=== PATIENT | female | born 1955 | race Caucasian/White ===

== ENCOUNTER → 2024-05-31 14:48 | Outpatient (REF) | payer MEDICARE, OTHER, SELFPAY ==
[2024-05-31 15:33] LABS: % Basophils 0.5 % (0-2); % Eosinophils 1.5 % (0-6); % Immature Granulocytes 0.5 % (0-0.5); % Lymphocytes 29.9 % (20.5-51.1); % Monocytes 7.6 % (1.7-9.3); Absolute Eosinophils 0.1 10^3/uL (0-0.7); Absolute Lymphocytes 2.3 10^3/uL (1.2-3.4); Absolute Monocytes 0.6 10^3/uL (0.1-0.6); Absolute Neutrophils 4.7 10^3/uL (1.4-6.5); Hematocrit 35.7 % (37.0-47.0); Hemoglobin 12.2 g/dL (12.0-16.0); Mean Corp Hgb Conc. 34.2 g/dL (33.0-37.0); Mean Corpuscular Hgb 32.2 pg (27.0-31.0); Mean Corpuscular Volume 94.2 fL (81.0-99.0); Mean Platelet Volume 10.4 fL (7.4-10.4); Nucleated Red Blood Cells % 0 %; Platelet Count 232 10^3/uL (130-400); Red Blood Cell Count 3.79 10^6/uL (4.20-5.40); Red Cell Dist. Width 13.1 % (11.5-14.5); White Blood Cell Count 7.8 10^3/uL (4.8-10.8)
== END ==
LOC: REG 14:48
PROVIDERS: ATTENDING PHYSICIAN Anesthesiology Pain Medicine; FAMILY PHYSICIAN Family Medicine
DX: Z13.228 Encounter for screening for other metabolic disorders (principal); T81.40XA Infection following a procedure, unspecified, initial encounter; F11.90 Opioid use, unspecified, uncomplicated
CPT/HCPCS: 36415; 85025; 87070; 87205

== ENCOUNTER 2024-06-22 08:31 | Emergency (ER) | payer MEDICARE, OTHER, SELFPAY ==
[2024-06-22 08:36] VITALS: BP 135/67
--- NOTE | 2024-06-22 09:41 | ED.GENMED ---
History of Present Illness
General
Chief Complaint: Extremity Pain (non-traumatic)
Source: patient
Exam Limitations: none
Time Seen by Provider: 06/22/24 09:11
Nursing documentation reviewed up to this point in time: agreed with
History of Present Illness
History of Present Illness:
68-year-old female presents emergency department complaining of electric shocks in both legs when she stands and walks for the past week. She had a pain pump placed 5 weeks ago at [facility] by Dr. Santos. He sent her in here
concern for a hematoma.
Past History
Past History
ED Past Medical History: HTN and Other (Fibromyalgia, anxiety)
ED Past Surgical History: Orthopedic (Lumbar nerve stimulator, lumbar surgery x 3, foot surgery, right knee replacement, pain pump)
Social History
Tobacco: Non-smoker
Alcohol: None
Drug: None
Review of Systems
Review of Systems
Allergies reviewed?: Yes
All Other Systems: Not applicable
Constitutional: Reports no symptoms
EENT: Reports no symptoms
Respiratory: Reports no symptoms
Cardiac: Reports no symptoms
ABD/GI: Reports no symptoms
: Reports no symptoms
Musculoskeletal: Reports back pain
Skin: Reports no symptoms
Neurological: Reports numbness
Endocrine: Reports no symptoms
Hematologic/Lymphatic: Reports no symptoms
Psychiatric: Reports no symptoms
Phy Exam
Physical Exam
Physical Exam:
Physical Exam
General: no apparent distress, not acutely ill
Neck: supple. no meningeal signs. normal posterior pharynx
Heart: s1/s2 regular rate and rhythm, no murmur. equal radial
pulses.
HEENT: Pupils equal round reactive to light, EOMI
Lungs: no acute respiratory distress. clear bilaterally
Abdomen: normal bowel sounds. not tender. no CVAT
Neuro: alert and oriented. no focal neurological deficits cranial nerves II through XII intact, ambulates without difficulty
Skin: no rash
Psychiatric: well kept. interactive and cooperative
Extremities: no edema. no calf tenderness. negative homans. good distal pulses
Course
Orders/Labs/Results
Orders:
Orders
06/22/24 09:51
MR Lumbar W/o & With Contrast Urgent
Comment: concern for arachnoiditis, hematoma
Reason For Exam: intrathecal pump, shooting pains in legs with amb
Recent pill cam endoscopy?: No
MR Thoracic Spine W/o & With Urgent
Comment: concern for arachnoiditis, hematoma
Reason For Exam: intrathecal pump, shooting pains in legs with amb
Recent pill cam endoscopy?: No
06/22/24 10:00
IV Insert/Care/Rem.- Treatment PRN
06/22/24 10:08
Complete Blood Count/With Diff Urgent
Comprehensive Metabolic Panel Urgent
06/22/24 10:26
Acetaminophen [Tylenol] 650 mg PO NOW STA
06/22/24 10:40
Lumbar Spine, 2 or 3 View [CR Lumbar Spine 2 Or 3 Views] Urgent
Comment:
Reason For Exam: verify stimulator integrity
Thoracic Spine 3 Views CR [CR Thoracic Spine 3 Views] Urgent
Comment:
Reason For Exam: verify stimulator integrity
Abnormal Lab Results
06/22/24
10:08
RBC 4.07 L 10^6/uL
(4.20-5.40)
Hct 36.5 L %
(37.0-47.0)
06/22/24 10:08
06/22/24 10:08
Vital Signs
Initial and Last Documented VS:
Initial Vital Signs
Temp Pulse Resp BP Pulse Ox
98.4 F 72 18 135/67 98
06/22/24 08:36 06/22/24 08:36 06/22/24 08:36 06/22/24 08:36 06/22/24 08:36
Last Documented Vital Signs
Temp Pulse Resp BP Pulse Ox
98.4 F 70 16 130/60 98
06/22/24 08:36 06/22/24 13:35 06/22/24 13:35 06/22/24 13:35 06/22/24 13:35
MDM/Problems Addressed
Differential Diagnosis Includes:
Subdural hematoma, cauda equina
MDM/Problems Addressed:
68-year-old female with paresthesias and low back pain. No signs of cauda equina. Multilevel degenerative disc disease. Discussed with Dr. 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
lipoma. This was seen on her 2021 MRI. Patient ambulates without difficulty, no neurologic deficits. Stable for discharge and follow-up with Dr. Santos.
Chronic conditions affecting care: Other (Chronic degenerative disc disease)
Acute Exacerbation and/or Progression of Chronic Illness: Other (Chronic degenerative disc disease)
*Radiology
Radiology exam reviewed: radiology read reviewed (MRI shows discogenic degenerative disc disease at multiple levels)
*Pulse Oximetry
Patient hypoxic: no
*Critical Care Note
Total Time (30-74mins, 75-104mins- exclusive of procedures): 30
comment:
Critical care statement: A total of 30 minutes of critical care time was provided for this patient. This includes management of unstable vital signs, evaluation of the patient at bedside, reviewing the patient's pertinent medical records, discussion
with consultants, review of old EKGs and review of pertinent medical records. This time with separate from time utilized to perform the aforementioned documented procedures
Patient Management
Social determinants of health affecting care: Living situation
Discussion with other providers: Office Messenger (Neurosurgery and)
ED Attending Note
-
Portions of this chart may have been created with voice recognition software.� Occasional wrong word or��sound alike� substitutions may have occurred due to the inherent limitations of voice recognition software.
Discharge Plan
Departure
Patient Disposition: Home (Routine Discharge)
Date of Disposition: 06/22/24
Time of Disposition: 15:58
Patient with high blood pressure during this ER visit?: Yes
Condition: Good
Discharge Problem:
Bilateral leg paresthesia
Instructions: BLOOD PRESSURE
Referrals:
Noman Lowery DO [Family Provider] -
Mary Santos MD [Active] - Call in 1-3 days for appt
Interventions
Interventions:
*Risk Screen - Suicide Last Done: 06/22/24 08:36
*General Assessment Last Done: 06/22/24 10:00
*Neglect/Abuse Screening Last Done: 06/22/24 08:36
ED- Fall Risk Assessment Last Done: 06/22/24 10:00
*ED COVID-19 Vaccine History Last Done: 06/22/24 08:36
*Nursing Disposition Last Done: 06/22/24 16:09
ED-Musculoskeletal Assessment Last Done: 06/22/24 10:00
ED-Skin Assessment Last Done: 06/22/24 10:00
Discharge Date and Time
Discharge Date/Time: 06/22/24 16:10
Print Language: YI
[2024-06-22 10:28] LABS: % Basophils 0.7 % (0-2); % Eosinophils 2.9 % (0-6); % Immature Granulocytes 0.3 % (0-0.5); % Lymphocytes 34.4 % (20.5-51.1); % Monocytes 9.1 % (1.7-9.3); % Neutrophils 52.6 % (42.2-75.2); Absolute Eosinophils 0.2 10^3/uL (0-0.7); Absolute Monocytes 0.5 10^3/uL (0.1-0.6); Absolute Neutrophils 3.1 10^3/uL (1.4-6.5); Hematocrit 36.5 % (37.0-47.0); Hemoglobin 12.6 g/dL (12.0-16.0); Mean Corp Hgb Conc. 34.5 g/dL (33.0-37.0); Mean Corpuscular Volume 89.7 fL (81.0-99.0); Mean Platelet Volume 10.1 fL (7.4-10.4); Nucleated Red Blood Cells % 0 %; Platelet Count 217 10^3/uL (130-400); Red Blood Cell Count 4.07 10^6/uL (4.20-5.40); Red Cell Dist. Width 13.2 % (11.5-14.5); White Blood Cell Count 5.8 10^3/uL (4.8-10.8)
[2024-06-22] MEDS: TYLENOL 650 MG PO (10:30)
[2024-06-22 10:38] LABS: ALT (SGPT) 19 U/L (0-35); AST (SGOT) 30 U/L (14-36); Albumin 3.9 g/dl (3.5-5.0); Alkaline Phosphatase 59 U/L (38-126); Blood Urea Nitrogen 12 mg/dl (7-17); Carbon Dioxide 29 mmol/L (22-30); Chloride 103 mmol/L (98-107); Glucose 95 mg/dl (70-99); Potassium 4.3 mmol/L (3.5-5.1); Sodium 140 mmol/L (135-145); Total Bilirubin 0.2 mg/dl (0.2-1.3); Total Protein 6.3 g/dl (6.3-8.2); eGFR > 60.00
[2024-06-22 13:35] VITALS: BP 130/60
== END 2024-06-22 16:10 | disposition home or self-care (01) ==
LOC: EMR 08:31
PROVIDERS: EMERGENCY PHYSICIAN Emergency Medicine; FAMILY PHYSICIAN Family Medicine
DX: R20.2 Paresthesia of skin (principal); I10 Essential (primary) hypertension
CPT/HCPCS: 99291; 72072; 72100; 72157; 72158; 80053; 85025; A9575